=== PATIENT | female | born 1985 | race Caucasian/White ===

== ENCOUNTER 2023-06-28 12:23 | Emergency (ER) | payer OTHER ==
[2023-06-28 12:34] VITALS: BP 129/73; PULSE 79; RESP 18; TEMP 98.3; BMI 29.2
[2023-06-28] MEDS ORDERED: KETOROLAC TROMETHAMINE 30 MG/1 ML VIAL ONE (13:25)
[2023-06-28] MEDS: KETOROLAC TROMETHAMINE 30 MG/1 ML VIAL IM ONE (13:27)
== END 2023-06-28 14:37 | disposition home or self-care (01) ==
LOC: JERFT 12:23
PROC: 3E0233Z Introduction of Anti-inflammatory into Muscle, Percutaneous Approach (ICD-10-PCS; principal; 2023-06-28)
DX: M79.10 Myalgia, unspecified site (principal); R05.9 Cough, unspecified; R51.9 Headache, unspecified; R09.81 Nasal congestion; R50.9 Fever, unspecified; R19.7 Diarrhea, unspecified; J10.1 Influenza due to other identified influenza virus with other respiratory manifestations; Z20.822 Contact with and (suspected) exposure to COVID-19
CPT/HCPCS: 0241U-QW; 87651; 99284-25